=== PATIENT | female | born 1945 | race Caucasian/White ===

== ENCOUNTER 2024-11-07 10:52 | Inpatient (IN) | payer OTHER ==
[2024-11-07] MEDS: SODIUM CHLORIDE 500 ML IV STA ×2 (12:42→14:23)
[2024-11-07 12:52] LABS: HEMATOCRIT 38.5 % (32.4-45.2); HEMOGLOBIN 13.1 GM/dL (10.7-15.3); MCH 31.1 pg (25.7-33.7); MEAN CELL VOLUME 91.3 fl (80-96); MEAN PLT VOLUME 8.6 fl (7.5-11.1); PLATELET COUNT 185 10^3/uL (134-434); RBC 4.21 M/mm3 (3.60-5.2); RDW 12.7 % (11.6-15.6); WHITE BLOOD COUNT 12.2 K/mm3 (4.0-10.0)
[2024-11-07 13:10] LABS: POTASSIUM 4.6 mmol/L (3.5-5.1)
[2024-11-07 13:12] LABS: CALCIUM 10.3 mg/dL (8.5-10.1)
[2024-11-07 13:14] LABS: ALBUMIN 3.8 g/dl (3.4-5.0); BLOOD UREA NITROGEN 24.1 mg/dL (7-18)
[2024-11-07 13:16] LABS: CREATININE 0.9 mg/dL (0.55-1.3)
[2024-11-07 13:17] LABS: BILIRUBIN,TOTAL 1.3 mg/dL (0.2-1)
[2024-11-07 14:55] LABS: ANISOCYTOSIS 0; HELMET CELLS 0; HOWELL-JOLLY BODIES 0; MACROCYTOSIS 0; OVALOCYTE 0; ROULEAU 0; SICKELED CELLS 0; TARGET CELLS 0; TEAR DROP CELLS 0; TOXIC GRANULATION 0
[2024-11-07] MEDS ORDERED: risperiDONE 2 MG TABLET PO ONE (16:01)
[2024-11-07] MEDS: LACTATED RINGERS SOLUTION 1,000 ML/1,000 ML INFUS.BAG IV SCH (18:21)
[2024-11-07] MEDS: SODIUM CHLORIDE 1,000 ML IV SCH (18:27)
[2024-11-07 23:58] VITALS: BMI 22.8
[2024-11-08] MEDS: risperiDONE 1 MG TABLET PO ONE (00:20)
[2024-11-08 02:24] LABS: PHOSPHOROUS 2.4 mg/dL (2.5-4.9)
[2024-11-08] MEDS: SODIUM CHLORIDE 500 ML IV STA (04:48)
[2024-11-08 09:38] LABS: BASO % 0.5 % (0-2.0); EOS % 1.4 % (0-4.5); HEMATOCRIT 33.2 % (32.4-45.2); HEMOGLOBIN 11.4 GM/dL (10.7-15.3); LYMPH % 33.6 % (8-40); MCH 31.4 pg (25.7-33.7); MCHC 34.2 g/dl (32.0-36.0); MEAN CELL VOLUME 91.6 fl (80-96); MEAN PLT VOLUME 8.6 fl (7.5-11.1); MONO % 8.9 % (3.8-10.2); NEUT % 55.6 % (42.8-82.8); PLATELET COUNT 163 10^3/uL (134-434); RBC 3.62 M/mm3 (3.60-5.2); RDW 13.1 % (11.6-15.6); WHITE BLOOD COUNT 8.6 K/mm3 (4.0-10.0)
[2024-11-08 09:46] LABS: INR 1.13 (0.83-1.09); PROTHROMBIN TIME (PATIENT) 12.9 SEC (9.7-13.0)
[2024-11-08 09:47] LABS: ACTIVATED PTT 21.2 SECONDS (25.2-36.5)
[2024-11-08 10:17] LABS: POTASSIUM 3.8 mmol/L (3.5-5.1)
[2024-11-08 10:18] LABS: CALCIUM 8.8 mg/dL (8.5-10.1)
[2024-11-08 10:19] LABS: BLOOD UREA NITROGEN 24.4 mg/dL (7-18)
[2024-11-08 10:22] LABS: CREATININE 0.8 mg/dL (0.55-1.3)
[2024-11-08] MEDS: SODIUM CHLORIDE 1,000 ML IV SCH ×2 (12:18→18:14)
[2024-11-08] MEDS: risperiDONE 1 MG TABLET PO SCH (15:00)
[2024-11-09 08:09] LABS: EOS % 2.8 % (0-4.5); HEMATOCRIT 34.9 % (32.4-45.2); HEMOGLOBIN 11.7 GM/dL (10.7-15.3); LYMPH % 41.1 % (8-40); MCH 31.1 pg (25.7-33.7); MCHC 33.7 g/dl (32.0-36.0); MEAN CELL VOLUME 92.4 fl (80-96); MEAN PLT VOLUME 8.7 fl (7.5-11.1); MONO % 7.7 % (3.8-10.2); NEUT % 47.4 % (42.8-82.8); PLATELET COUNT 157 10^3/uL (134-434); RBC 3.77 M/mm3 (3.60-5.2); RDW 12.8 % (11.6-15.6); WHITE BLOOD COUNT 9.1 K/mm3 (4.0-10.0)
[2024-11-09 08:25] LABS: POTASSIUM 3.7 mmol/L (3.5-5.1)
[2024-11-09 08:29] LABS: ALBUMIN 3.1 g/dl (3.4-5.0); BLOOD UREA NITROGEN 14.2 mg/dL (7-18)
[2024-11-09 08:31] LABS: CREATININE 0.6 mg/dL (0.55-1.3)
[2024-11-09 08:33] LABS: BILIRUBIN,TOTAL 0.8 mg/dL (0.2-1); TOT PROT 6.4 g/dl (6.4-8.2)
[2024-11-09] MEDS: LISINOPRIL 20 MG TABLET PO SCH (08:48)
[2024-11-09] MEDS: amLODIPine BESYLATE 10 MG TABLET (FP) PO SCH (09:26)
[2024-11-09] MEDS: ATORVASTATIN CA 20 MG TABLET (FP) PO SCH (21:19)
[2024-11-10] MEDS: SODIUM CHLORIDE 1,000 ML IV SCH (06:34)
[2024-11-10 09:00] VITALS: BP 115/65; PULSE 65; RESP 18; TEMP 99.7
[2024-11-10] MEDS: risperiDONE 1 MG TABLET PO SCH (09:12)
[2024-11-10] MEDS: LISINOPRIL 20 MG TABLET PO SCH (09:12)
[2024-11-10] MEDS: amLODIPine BESYLATE 10 MG TABLET (FP) PO SCH (09:14)
[2024-11-10] MEDS ORDERED: ATORVASTATIN CA 20 MG TABLET (FP) PO SCH (22:00)
== END 2024-11-10 12:35 | DRG 558 ==
LOC: JER 10:52 → JERBED 18:28 → J5S 19:47 → J4W 11-08 13:36 → J6S 11-09 18:12
PROVIDERS: ADMIT Internal Medicine; ATTEND Internal Medicine
DX: M62.82 Rhabdomyolysis (principal); S32.010A Wedge compression fracture of first lumbar vertebra, initial encounter for closed fracture; I10 Essential (primary) hypertension; E78.00 Pure hypercholesterolemia, unspecified; F20.9 Schizophrenia, unspecified; E86.0 Dehydration; R13.10 Dysphagia, unspecified; W19.XXXA Unspecified fall, initial encounter; Y93.89 Activity, other specified; Y92.008 Other place in unspecified non-institutional (private) residence as the place of occurrence of the external cause; Y99.8 Other external cause status
CPT/HCPCS: 36415; 70450-TC; 72070-TC-FY; 72100-TC-FY; 72125-TC; 72170-TC-FY; 73030-TC-LT-FY; 73060-TC-LT-FY; 73502-TC-LT-FY; 80048; 80053; 82550; 82553; 82607; 82746; 83735; 84100; 84439; 84443; 84484; 85025; 85610; 85730; 87086; 93005; 93010; 93306-TC; 97116-GP; 97162-GP; 99285-25

== ENCOUNTER 2025-05-21 14:33 | Inpatient (IN) | payer OTHER ==
[2025-05-21] MEDS ORDERED: VANCOMYCIN 1,000 MG in DEXTROSE 5%-WATER - 250 ML IVPB ONE (15:52)
[2025-05-21 16:04] LABS: MONOCYTE # 0.99 x10^3/uL (0.24-0.86); RDW 12.9 % (12.4-16.6)
[2025-05-21 16:06] LABS: ABSOLUTE IMMATURE GRANULOCYTES 0.01 x10^3/uL (0.0-0.031); BASOPHILS # 0.04 x10^3/uL (0.01-0.08); EOSINOPHIL % 1.8 % (0.7-5.8); EOSINOPHILS # 0.16 x10^3/uL (0.04-0.36); HEMOGLOBIN 12.2 g/dL (11.2-15.7); MEAN CELL VOLUME 91.6 fl (79.4-94.8); MEAN PLT VOLUME 12.3 fl (9.4-12.3); MONOCYTE % 11.3 % (4.7-12.5); PLATELET COUNT 119 x10^3/uL (182-369)
[2025-05-21 16:08] LABS: EPI CELLS 6 /uL (0-25.1); HYALINE CASTS 1 /uL (0-3.1); PH,URINE 6.5 (5.0-8.0); URINE APPEARANCE TURBID; URINE BACTERIA 6997 /uL (0-1359); URINE BILIRUBIN NEGATIVE (NEGATIVE); URINE COLOR YELLOW; URINE GLUCOSE (UA) NEGATIVE (NEGATIVE); URINE KETONE TRACE (NEGATIVE); URINE LEUK ESTERASE 2+ (NEGATIVE); URINE NITRITE POSITIVE (NEGATIVE); URINE PROTEIN NEGATIVE (NEGATIVE); URINE WBC 299 /uL (0-25.8)
[2025-05-21] MEDS ORDERED: PIPERACILLIN/TAZOB 4.5 GM 4.5 GM/100 ML BAG IVPB ONE (16:09)
[2025-05-21 16:12] LABS: VENOUS BASE EXCESS 1.4 mmol/L (-2-2); VENOUS O2 SATURATION 76.6 % (70-80); VENOUS PCO2 42.3 mmHg (38-52); VENOUS PH 7.411 (7.310-7.410)
[2025-05-21] MEDS: PIPERACILLIN/TAZOB 4.5 GM 4.5 GM in DEXTROSE 5%-WATER 100 ML IVPB ONE (16:16)
[2025-05-21 16:22] LABS: INR 1.22 (0.83-1.09); PROTHROMBIN TIME (PATIENT) 13.3 SEC (9.7-13.0)
[2025-05-21 16:25] LABS: ACTIVATED PTT 24.3 SECONDS (25.2-36.5)
[2025-05-21 16:29] LABS: POTASSIUM 4.4 mmol/L (3.5-5.1)
[2025-05-21 16:31] LABS: BLOOD UREA NITROGEN 16.1 mg/dL (7-18); CALCIUM 9.6 mg/dL (8.5-10.1)
[2025-05-21 16:34] LABS: CREATININE 0.5 mg/dL (0.55-1.3)
[2025-05-21 16:36] LABS: BILIRUBIN,TOTAL 0.6 mg/dL (0.2-1)
[2025-05-21] MEDS ORDERED: VANCOMYCIN 1 GM PREMIX (F) 1 GM/200 ML BAG ONE (16:40)
[2025-05-21] MEDS: VANCOMYCIN 1 GM PREMIX (F) 1 GM/200 ML BAG IVPB ONE (16:49)
[2025-05-21] MEDS ORDERED: ACETAMINOPHEN 325 MG TABLET (FP) PO PRN (22:05)
[2025-05-21 22:33] VITALS: RESP 18
[2025-05-22 00:12] VITALS: BMI 20.8
[2025-05-22] MEDS: SODIUM CHLORIDE 1,000 ML IV SCH (01:07)
[2025-05-22 06:11] LABS: ARTERIAL BLD GAS O2 SATURATION 98.3 % (95-98); ARTERIAL BLOOD GAS BASE EXCESS 0.9 mmol/L (-2-2); ARTERIAL BLOOD GAS PO2 104.9 mmHg (80-100)
[2025-05-22 06:12] LABS: ALLENS TEST POSITIVE
[2025-05-22] MEDS: LACTULOSE 20 GM/30 ML UDC (FOR RECTAL USE ONLY) PR ONE (06:35)
[2025-05-22 07:16] LABS: YEAST NONE SEEN (NEGATIVE)
[2025-05-22 07:21] LABS: URINE RBC 95.1 /uL (0-23.9)
[2025-05-22 08:32] LABS: ABSOLUTE IMMATURE GRANULOCYTES 0.02 x10^3/uL (0.0-0.031); EOSINOPHIL % 2.4 % (0.7-5.8); EOSINOPHILS # 0.21 x10^3/uL (0.04-0.36); RDW 12.5 % (12.4-16.6)
[2025-05-22 08:34] LABS: BASOPHILS # 0.05 x10^3/uL (0.01-0.08); HEMOGLOBIN 12.9 g/dL (11.2-15.7); MCHC 33.1 g/dl (32.2-35.5); MEAN CELL VOLUME 91.8 fl (79.4-94.8); MEAN PLT VOLUME 10.3 fl (9.4-12.3); MONOCYTE # 1.04 x10^3/uL (0.24-0.86); PLATELET COUNT 120 x10^3/uL (182-369)
[2025-05-22 08:56] LABS: POTASSIUM 3.8 mmol/L (3.5-5.1)
[2025-05-22 09:08] LABS: CALCIUM 9.9 mg/dL (8.5-10.1)
[2025-05-22 09:09] LABS: ALBUMIN 3.1 g/dl (3.4-5.0); BLOOD UREA NITROGEN 9.5 mg/dL (7-18); MAGNESIUM 1.9 mg/dL (1.8-2.4)
[2025-05-22 09:12] LABS: CREATININE 0.5 mg/dL (0.55-1.3); PHOSPHOROUS 3.1 mg/dL (2.5-4.9)
[2025-05-22 09:13] LABS: BILIRUBIN,TOTAL 0.9 mg/dL (0.2-1)
[2025-05-22 09:14] LABS: TOT PROT 6.8 g/dl (6.4-8.2)
[2025-05-22] MEDS ORDERED: ENOXAPARIN NA (PORCINE) 40 MG/0.4 ML DISP.SYRIN SQ SCH (10:00)
[2025-05-22] MEDS ORDERED: VALPROATE SODIUM 500 MG/5 ML VIAL IVPB SCH (10:00)
[2025-05-22] MEDS: CEFTRIAXONE 1 GM in DEXTROSE 5%-WATER - 50 ML IVPB SCH (10:18)
[2025-05-22] MEDS: VALPROATE SODIUM INJECTION 250 MG in SODIUM CHLORIDE 100 ML IVPB SCH ×2 (11:00→20:15)
[2025-05-22] MEDS ORDERED: VALPROATE SODIUM INJECTION 500 MG in SODIUM CHLORIDE 100 ML IVPB SCH (11:00)
[2025-05-22] MEDS: risperiDONE 1 MG TABLET PO SCH (15:46)
[2025-05-22] MEDS: amLODIPine BESYLATE 5 MG TABLET (FP) PO SCH (15:46)
[2025-05-22] MEDS: ACETAMINOPHEN 1000 MG/100 ML BAG IVPB PRN (15:49)
[2025-05-22] MEDS: VANCOMYCIN/WATER FOR INJ (PEG) 750 MG/150 ML BAG IVPB ONE (17:36)
[2025-05-22] MEDS: AMINO ACIDS/PROTEIN HYDROLYS 30 ML LIQUID.PKT PO SCH (18:50)
[2025-05-22] MEDS: ASCORBIC ACID 500 MG TABLET (FP) PO SCH (21:30)
[2025-05-22] MEDS: ATORVASTATIN CA 20 MG TABLET (FP) PO SCH (21:30)
[2025-05-23 08:51] LABS: ABSOLUTE IMMATURE GRANULOCYTES 0.01 x10^3/uL (0.0-0.031); BASOPHILS # 0.04 x10^3/uL (0.01-0.08); EOSINOPHIL % 3.3 % (0.7-5.8); EOSINOPHILS # 0.24 x10^3/uL (0.04-0.36); HEMATOCRIT 38.6 % (34.1-44.9); HEMOGLOBIN 12.9 g/dL (11.2-15.7); MCHC 33.4 g/dl (32.2-35.5); MEAN CELL VOLUME 91.3 fl (79.4-94.8); MONOCYTE # 0.79 x10^3/uL (0.24-0.86); MONOCYTE % 10.9 % (4.7-12.5); PLATELET COUNT 123 x10^3/uL (182-369); RDW 12.4 % (12.4-16.6)
[2025-05-23] MEDS ORDERED: ENOXAPARIN NA (PORCINE) 30 MG/0.3 ML DISP.SYRIN SQ SCH (10:00)
[2025-05-23 10:08] LABS: BLOOD UREA NITROGEN 10.9 mg/dL (7-18); CALCIUM 10.2 mg/dL (8.5-10.1); CREATININE 0.5 mg/dL (0.55-1.3); MAGNESIUM 1.9 mg/dL (1.8-2.4); PHOSPHOROUS 3.7 mg/dL (2.5-4.9); POTASSIUM 3.6 mmol/L (3.5-5.1)
[2025-05-23] MEDS: MULTIVITAMINS (DAILY MVI) TABLET (FP) PO SCH (10:58)
[2025-05-23] MEDS: VANCOMYCIN 750 MG in DEXTROSE 5%-WATER - 150 ML IVPB SCH ×2 (12:13→17:13)
[2025-05-23] MEDS: VANCOMYCIN/WATER FOR INJ (PEG) 750 MG/150 ML BAG IVPB SCH (12:15)
[2025-05-23] MEDS ORDERED: VANCOMYCIN/WATER FOR INJ (PEG) 750 MG/150 ML BAG IVPB SCH (17:00)
[2025-05-24 17:32] VITALS: BP 127/89; PULSE 75; TEMP 99.3
== END 2025-05-24 19:04 | DRG 689 ==
LOC: JER 14:33 → JERBED 19:46 → J5S 23:08
PROVIDERS: ADMIT Internal Medicine; ATTEND Internal Medicine
DX: N39.0 Urinary tract infection, site not specified (principal); G93.41 Metabolic encephalopathy; R64 Cachexia; I10 Essential (primary) hypertension; E86.0 Dehydration; D69.6 Thrombocytopenia, unspecified; F20.9 Schizophrenia, unspecified; F03.90 Unspecified dementia, unspecified severity, without behavioral disturbance, psychotic disturbance, mood disturbance, and anxiety; E78.5 Hyperlipidemia, unspecified; R00.1 Bradycardia, unspecified; L89.152 Pressure ulcer of sacral region, stage 2; Z68.20 Body mass index [BMI] 20.0-20.9, adult
CPT/HCPCS: 0241U-QW; 36415; 36600; 70450-TC; 71045-TC-FY; 76775-TC; 80048; 80053; 80164; 81003; 82140; 82803; 82962; 83605; 83735; 84100; 84484; 85025; 85610; 85730; 86850; 86900; 86901; 87040; 87086; 93005; 93010; 97161-GP; 99285-25; G0480